=== PATIENT | male | born 1975 | race Caucasian/White ===

== ENCOUNTER → 2017-10-26 | Day surgery (SDC) | payer OTHER ==
[~2017-10-26] VITALS: Ht 195.6 cm; Wt 106.6 kg
--- NOTE | 2017-10-26 12:44 | Operative Report ---
Operative/Inv Procedure Report Surgery Date: 10/26/17 Name of Procedure: left renal ESWL, vasectomy bilaterally Pre-Operative Diagnosis: left kidney stone: demand sterilization Post-Operative Diagnosis: same Estimated Blood Loss: less than 50ml Surgeon/Voice Intercept Technician: Eric Lyons MD Anesthesia: moderate sedation Complications: none Operative/Procedure Note Note: The patient was taken to the operating room and placed on the ESWL table in supine position. With the patient awake, timeout was performed to confirm correct identity, procedure, laterality, anesthesia, and other pertinent ace- operative information. After adequate anesthesia, the patient was positioned so that the patient's left flank was positioned over the table cut-out, overlying the dome of the treatment head. Once the patient was adequately sedated, fluoroscopy, as well as Renal ultrasound was used to locate the LEFT renal stones. Renal US confirmed the presence of the stone which measured it to be approximately 5 mm x 2 upper pole stone. The stone was visible with fluoroscopy. Renal US revealed, no hydronephrosis, and no solid tumor, and presence of the stone. The position of the stone was optimized by using fluoroscopy in AP and oblique views;placing the stone within the ESWL c-arm crosshairs. Once the stone's position was optimized , the LEFT renal E.S.W.L. was initiated at low energy level. After noting the patient's tolerance to the shockwaves, the intensitiy was ramped up to maximum level. At the end of the procedure, the left renal stone had dissintegrated. Of note, a total of 2500 shockwaves were delivered to the stone. (A brief preoperative consultation was conducted in the preoperative area confirming that the patient wishes to proceed with this permanent sterilization procedure, and again reviewing the risks benefits and alternatives and especially the fact that the patient continues to be FERTILE until no sperm is seen on ejaculation at the three-month and six-month postop semen analysis. Recommendation for continued contraception was given to the patient's verbally and written) The patient was then frog legged, draped and prepped in usual surgical fashion. Local anesthesia was injected into the midline anterior scrotum along the midline raphae. 15 blade knife was used to make a half centimeter incision which was carried down into the detrusor fascia. The left vas deferens was clearly palpable and grasped, with a ring clamp, to bring it superficiallyto the level of the incision. The left vas deferens was confirmed to be in place as it was examined along the left side of the patient's penis by palpation. Cutting current using the Bovie cautery was used in order to incise the detrusor fascia, and the ace-vas fascia in order to expose the vas deferens completely. Blunt and sharp dissection was used in order to skeletonize this left vas deferens for a length of approximately 2 inches. Both exposed ends were clamped, and the 2 inch segment of vas deferens was then excised using a 15 blade knife and sent to pathology the open-ended were cauterized and each end was then tied with a 2-0 Vicryl stitch. This left vas was then allowed to retract into its anatomic position, with a 2 inch separation from both up included ends of the vas. The skin was closed using 2-0 Chromic interrupted stitches and a vertical mattress fashion. Pressure was held on to the surgical site for 2 minutes. Neosporin was then placed on the incision and fluff gauze with scrotal support was then placed on the patient prior to awakening him. All sponge needle and instrument count were correct at the end of the case. The patient tolerated the procedures well, was awakened, then taken to recovery in satisfactory condition via stretcher. The patient was dischared home with pain medications, diet orders, and intructions to catch fragments by straining the urine. The patient to to have follow-up renal ultrasound and KUB in 1 to 2 weeks, prior to follow-up visit in my office. He will then proceed with metabolic stone work-up. Discharge Disposition: Same Day Admissions CC: Eloy FERRARA,Eric
== END ==
LOC: STS 03:02
DX: N20.0 Calculus of kidney (principal); Z30.2 Encounter for sterilization
CPT/HCPCS: J1100; J2001; J2250; J2405

== ENCOUNTER 2017-10-30 10:03 | Emergency (ER) | payer OTHER ==
[~2017-10-30] VITALS: Ht 195.6 cm; Wt 108.0 kg
--- NOTE | 2017-10-30 11:04 | ED GENERAL ADULT ---
History of Present Illness General Chief Complaint: General Adult Stated Complaint: FEVER S/P SURGERY, SINUS INFECTION,SORE THROAT Source: patient, family Exam Limitations: no limitations Vital Signs & Intake/Output Vital Signs & Intake/Output Vital Signs Date Time Temp Pulse Resp B/P B/P Pulse O2 O2 Flow FiO2 Mean Ox Delivery Rate 10/30 1007 98.1 97 18 103/70 97 Room Air Room Air Allergies Coded Allergies: No Known Allergies (10/22/17) Reconcile Medications Atorvastatin Calcium (Lipitor) 10 MG TABLET 1 TAB PO DAILY CHOLESTEROL ( Reported) Cartilage/Collagen/Bor/Hyalur (Joint Health Tablet) (Unknown Strength) TABLET 1 TAB PO DAILY SUPPLEMENT (Reported) Triage Note: TRIAGE: 42 Y/O MALE PRESENTS C/O FEVER AND BODY ACHES. REPORTS HAD LITHOTRIPSY AND VASECTOMY ON Wednesday10/26/2017. WAS ON VACATION LAST WEEK AND GOT WATER IN HIS EARS - SORE THROAT, HEADACHES, 102 FEVER. "I WAS SWEATING THROUGH THE SHEETS AFTER MOTRIN AND TYLENOL." PATIENT BELIEVES "IT'S A DOUBLE EAR INFECTION". BELIEVES "HE NEEDS A WORK UP FOR SEPSIS, HE NEEDS BLOOD WORK TO RULE OUT EVERYTHING." * LAST DOSE OF MOTRIN 0500, LAST DOSE OF TYLENOL JUST PRIOR TO ARRIVAL. Triage Nurses Notes Reviewed? yes HPI: 42-year-old healthy male presents for multiple complaints. The patient had a vasectomy on Wednesday, has been on Augmentin to prevent infection. The patient reports that the week before this he had sinus congestion or sore throat. He continues to have sinus congestion and sore throat. He has had fever since yesterday. The patient also reports sinus congestion, body aches, muscle pain, headache, abdominal cramps. He reports some abdominal cramps started with diarrhea after the Augmentin. He denies any dysuria or hematuria currently. The patient reports that he had lithotripsy done with the vasectomy. He had to stones still present in the left kidney which were taken care of. He had hematuria after the surgery but has since resolved. Past History Travel History Traveled to [place] past 21 day No Medical History Any Pertinent Medical History? see below for history Neurological: NONE EENT: NONE Cardiovascular: hyperlipidemia Surgical History Surgical History: see HPI Psychosocial History What is your primary language Swedish Tobacco Use: Never used ETOH Use: occasional use Illicit Drug Use: denies illicit drug use Family History Hx Contributory? Yes Review of Systems Review of Systems Constitutional: Reports: chills, fever, malaise, weakness. Denies: diaphoresis. EENTM: Denies: blurred vision, double vision, visual changes, eye pain. Respiratory: Denies: cough, hemoptysis, orthopnea, short of breath. Cardiovascular: Denies: chest pain, edema, orthopena. GI: Reports: abdominal pain, diarrhea. Denies: bloating, constipation. Genitourinary: Reports: hematuria. Denies: discharge, dysuria, frequency. Musculoskeletal: Reports: back pain, joint pain, muscle pain. Denies: gout. Skin: Denies: cysts, change in skin color, change in hair/nails. Neurological/Psychological: Denies: anxiety, ataxia, cognitive dysfunction. Immunologic/Allergic: Denies: splenectomy, HIV/AIDS. Physical Exam Physical Exam General Appearance: well developed/nourished, no apparent distress, alert, awake Head: atraumatic, normal appearance, active bleeding Eyes: Bilateral: PERRL, EOMI, abnormal EOM. Ears, Nose, Throat: normal pharynx, normal ENT inspection Neck: normal inspection, supple, full range of motion Respiratory: normal breath sounds, chest non-tender, no respiratory distress Cardiovascular: regular rate/rhythm, edema Gastrointestinal: normal bowel sounds, soft, non-tender, no organomegaly Back: normal inspection, normal range of motion Extremities: normal inspection, normal capillary refill, normal range of motion Neurologic/Psych: no motor/sensory deficits, awake, alert, oriented x 3 Skin: intact, normal color, warm/dry Comments: Exam is quite benign. No obvious source. Ears are benign. Throat is benign. No meningismus. Clear chest. Abdomen is soft and benign. The surgical scar appears healthy. No lymphangitis. No obvious source based on the exam. Based on history this appears to be due to the patient's URI symptoms. Core Measures ACS in differential dx? No CVA/TIA Diagnosis: No Sepsis Present: No Sepsis Focused Exam Completed? No Progress Differential Diagnoses The patient is having generalized body aches and not feeling well since the fever yesterday. He is weaning Tylenol Motrin. He is highly concerned about sepsis related to the surgery. He has no abdominal symptoms to suggest this. He has cramps and diarrhea since Augmentin. Abdomen is completely soft and benign without CVA tenderness. We will check the urine though because he recently had lithotripsy as well. The vasectomy scar looks healthy it is nontender. He has no penile discharge. The site is not infected. The patient does have URI symptoms which could be the source of the infection. The patient has clear ears and throat. Patient has headache for the body aches without any meningismus or photophobia. This non-meningitis. The patient is requesting test for Lyme, strep, CBCs with differential. We will check those. At the same time we will get other tests and I will give patient symptomatic relief with fluids and Toradol. We will check for lactate because the patient's specific complaint is he might have sepsis. He is not showing clinical signs of sepsis. Plan of Care: Orders Procedure Date/time Status Add-on Test (ER Only) 10/30 1256 Active CULTURE,URINE 10/30 1249 Active LIPASE 10/30 1100 Complete Saline Lock 10/30 1059 Active THROAT CULTURE W/QUICK STREP 10/30 1059 Active URINALYSIS 10/30 1059 Complete LYME TITRE 10/30 1059 Active LACTIC ACID 10/30 1059 Complete COMPREHENSIVE METABOLIC PANEL 10/30 1059 Complete CBC WITHOUT DIFFERENTIAL 10/30 1059 Complete Laboratory Tests 10/30/17 1150: Urinalysis LIGHT H, Urine Color HALI, Urine Clarity CLEAR, Urine pH 6.0, Ur Specific [place] 1.025, Urine Protein 30 H, Urine Ketones NEG, Urine Nitrite NEG, Urine Bilirubin NEG, Urine Urobilinogen 0.2, Ur Leukocyte Esterase NEG, Ur Microscopic SEDIMENT EXAMINED, Urine RBC 5-10 H, Urine WBC 1-3 H, Ur Epithelial Cells RARE, Urine Bacteria FEW H, Hyaline Casts RARE H, Urine Mucus MANY H, Urine Hemoglobin SMALL H, Urine Glucose NEG 10/30/17 1106: Lipase 33 10/30/17 1106: Anion Gap 13, Estimated GFR > 60, BUN/Creatinine Ratio 16.0, Glucose 121 H, Lactic Acid 0.8, Calcium 9.6, Total Bilirubin 1.1, AST 103 H, ALT 141 H, Alkaline Phosphatase 74, Total Protein 7.1, Albumin 4.3, Globulin 2.8, Albumin/ Globulin Ratio 1.5, CBC w Diff MAN DIFF ORDERED, RBC 5.07, MCV 87.8, MCH 29.2, MCHC 33.2, RDW 13.6, MPV 7.4, Gran % 87.0 H, Lymphocytes % 6.0 L, Monocytes % 6.7, Eosinophils % 0.3, Basophils % 0, Absolute Granulocytes 13.5 H, Absolute Lymphocytes 0.9 L, Absolute Monocytes 1.0 H, Absolute Eosinophils 0, Absolute Basophils 0, Platelet Estimate ADEQUATE, Normocytic RBCs VERIFIED, Normochromic RBCs VERIFIED, Lyme Disease Antibody Pending Microbiology 10/30 1249 URINE ROUT: Urine Culture - RECD Initial ED EKG: none Comments: 1211 feeling somewhat better. Pending labs. 1327-the patient feels somewhat better. P.o. tolerant. A digital exam does not show any focal bacterial infection. There is no meningismus, chest is completely clear. Abdomen is soft and benign. No concern for appendicitis, meningitis, pneumonia or then a life-threatening infection. The patient's urine does not show any obvious infection either. He has no CVA tenderness or renal colic pain to suggest this is renal colic. Because he is postop the case was discussed in detail with . She agreed that there is no indication to do a CT scan without the symptoms. She will let the patient's urologist not recommends follow-up on Wednesday. The patient is otherwise nontoxic, showing no signs of sepsis or septic shock. The urological surgery site is very healthy without any signs of infection. Testicles are completely nontender. At this time the presentation is consistent viral syndrome. No obvious source. Plan will be symptomatically treatment. Given that the patient is healthy we will discharge him and have him follow-up with PCP and neurology. No signs or history consistent with tick borne disease. Lyme test sent per patient's request. Departure Departure Time of Disposition: 1326 Disposition: HOME OR SELF CARE Condition: Stable Clinical Impression Primary Impression: Viral syndrome Referrals: Natacha FERRARA,Sohail Diamond (PCP/Family) Additional Instructions: Take Tylenol and Motrin regularly as discussed. Stay hydrated. Return if you get worse or feel worse at any time. Departure Forms: Customer Survey General Discharge Information Critical Care Note Critical Care Note Critical Care Time: non-applicable
[2017-10-30 11:28] LABS: ABSOLUTE BASOPHIL COUNT 0 /CUMM (0.0-0.2); ABSOLUTE EOSINOPHIL COUNT 0 /CUMM (0.0-0.7); ABSOLUTE GRANULOCYTE CT 13.5 /CUMM (1.4-6.5); ABSOLUTE LYMPH COUNT 0.9 /CUMM (1.2-3.4); BASOPHIL % 0 % (0.0-2.0); EOSINOPHIL % 0.3 % (0-5); HEMATOCRIT 44.5 % (42-52); MEAN CORPUSCULAR HGB 29.2 PG (27.0-31.0); MEAN CORPUSCULAR HGB CONC 33.2 G/DL (33.0-37.0); MEAN CORPUSCULAR VOLUME 87.8 FL (80.0-94.0); MEAN PLATELET VOLUME 7.4 FL (7.4-10.4); PLATELET COUNT 215 /CUMM (130-400); RBC DISTRIBUTION WIDTH 13.6 % (11.5-14.5); RED BLOOD CELL CT 5.07 /CUMM (4.70-6.10); WHITE BLOOD CELL COUNT 15.6 /CUMM (4.8-10.8)
[2017-10-30] MEDS ORDERED: LIPITOR10 M1 PO (11:40)
[2017-10-30] MEDS ORDERED: JOINT HEALTH T1 EACH PO (11:41)
[2017-10-30 13:28] VITALS: BP 112/84
== END 2017-10-30 13:37 ==
LOC: ERH 10:03
PROVIDERS: Emergency Medicine
DX: B34.9 Viral infection, unspecified (principal); J02.9 Acute pharyngitis, unspecified; R10.9 Unspecified abdominal pain; R19.7 Diarrhea, unspecified
CPT/HCPCS: 86618; 81001; 87086; 96374; 96376; J1885